=== PATIENT | female | born 1995 ===

== ENCOUNTER 2016-12-21 06:53 | Day surgery (SDC) | payer OTHER ==
[~2016-12-21] VITALS: Ht 162.6 cm; Wt 52.2 kg
[2016-12-21] MEDS ORDERED: BUPIVACAINE-MPF/EPI 0.25% 30 ML VIAL INJ ONE (07:19)
[2016-12-21] MEDS ORDERED: LIDOCAINE 1% 50 ML ONE (07:19)
[2016-12-21] MEDS ORDERED: PROPOFOL 200 MG/20 ML VIAL IV ONE (07:56)
[2016-12-21] MEDS ORDERED: SEVOFLURANE 250 ML BTL INH ONE (07:56)
[2016-12-21] MEDS ORDERED: fentaNYL 0.05 MG/ML VIAL ONE (08:09)
[2016-12-21] MEDS ORDERED: MIDAZOLAM 2 MG/2 ML VIAL ONE (08:09)
[2016-12-21] MEDS ORDERED: MORPHINE SULFATE 4 MG/ML SYR ONE (08:10)
[2016-12-21] MEDS ORDERED: MORPHINE SULFATE 4 MG/ML SYR IVP PRN ×2 (08:45)
[2016-12-21] MEDS ORDERED: METOCLOPRAMIDE 10 MG/2 ML INJ VIAL IVP PRN (08:45)
[2016-12-21] MEDS ORDERED: MORPHINE SULFATE 2 MG/ML SYR IVP PRN ×3 (08:45→15:00)
[2016-12-21] MEDS ORDERED: MIDAZOLAM 2 MG/2 ML VIAL IV ONE (08:45)
[2016-12-21] MEDS ORDERED: HYDROmorphone 1 MG/ML AMP IVP PRN (09:05)
[2016-12-21] MEDS ORDERED: ACETAMINOPHEN 325 MG TAB PO PRN (09:05)
[2016-12-21] MEDS ORDERED: HYDROcodone/APAP 5/325 MG 1 TAB TAB PO PRN (09:05)
[2016-12-21] MEDS ORDERED: ONDANSETRON 4 MG/2 ML VIAL IV PRN (09:05)
[2016-12-21] MEDS ORDERED: MORPHINE SULFATE 4 MG/ML SYR IV PRN (15:00)
== END 2016-12-21 10:20 | disposition home or self-care (01) ==
LOC: MDS 06:53 → MMU 06:55 → MDS 10:20
PROVIDERS: ATTEND Surgery
DX: L72.3 Sebaceous cyst (principal)
CPT/HCPCS: 21552; 71010; J0690; J2001; J2250; J2270; J2704; J3010; J3490; J7060; J7120